=== PATIENT | male | born 1995 | race Caucasian/White ===

== ENCOUNTER 2017-10-23 05:10 | Emergency (ER) | payer BC ==
[2017-10-23] MEDS ORDERED: NA CHLORIDE 0.9% 1,000 ML ONE (05:30)
[2017-10-23] MEDS ORDERED: Morphine 2 MG/2 ML SYR ONE (05:45)
[2017-10-23] MEDS ORDERED: ONDANSETRON 4 MG/2 ML VIAL ONE (05:46)
--- NOTE | 2017-10-23 05:48 | EDPHYS ---
Physician Documentation [facility] Name: Rory Rivera Age: 22 yrs Sex: Male : 1995 Arrival Date: 10/23/2017 Time: 05:11 Bed 16 Private MD: ED Physician Torsten Chou HPI: 10/23 05:39 This 22 yrs old Male presents to ER via Wheelchair with complaints of tw4 Vomiting. 05:39 The patient presents to the emergency department with nausea, vomiting. Onset: The tw4 symptoms/episode began/occurred today. The symptoms are aggravated by nothing. The symptoms are alleviated by nothing. Severity of symptoms: At their worst the symptoms were moderate in the emergency department the symptoms are unchanged. The patient has not experienced similar symptoms in the past. Historical: - Allergies: 05:24 No Known Allergies; aa1 - Home Meds: 05:24 [place] Oral [Active]; aa1 - PMHx: 05:24 None; aa1 - PSHx: 05:24 Tonsillectomy; aa1 - Immunization history:: Flu vaccine is not up to date. - Social history:: Smoking status: Patient/guardian denies using tobacco. - Ebola Screening: : No symptoms or risks identified at this time. ROS: 05:39 Constitutional: Negative for fever, chills, and weight loss, Cardiovascular: Negative tw4 for chest pain, palpitations, and edema, Respiratory: Negative for shortness of breath, cough, wheezing, and pleuritic chest pain, Back: Negative for injury and pain. 05:39 ENT: Positive for difficulty handling secretions, hoarseness, sore throat. 05:39 Abdomen/GI: Positive for nausea and vomiting, nausea, vomiting, and diarrhea, nausea, vomiting. 05:39 Back: Positive for Exam: 05:40 Constitutional: This is a well developed, well nourished patient who is awake, alert, tw4 and in no acute distress. Chest/axilla: Normal chest wall appearance and motion. Nontender with no deformity. No lesions are appreciated. Cardiovascular: Regular rate and rhythm with a normal S1 and S2. No gallops, murmurs, or rubs. Normal PMI, no JVD. No pulse deficits. Respiratory: Lungs have equal breath sounds bilaterally, clear to auscultation and percussion. No rales, rhonchi or wheezes noted. No increased work of breathing, no retractions or nasal flaring. Abdomen/GI: Soft, non-tender, with normal bowel sounds. No distension or tympany. No guarding or rebound. No evidence of tenderness throughout. MS/ Extremity: Pulses equal, no cyanosis. Neurovascular intact. Full, normal range of motion. Neuro: Awake and alert, GCS 15, oriented to person, place, time, and situation. Cranial nerves II-XII grossly intact. Motor strength 5/5 in all extremities. Sensory grossly intact. Cerebellar exam normal. Normal gait. Vital Signs: 05:24 BP 138 / 92; Pulse 104; Resp 20; Temp 97.5; Pulse Ox 95% on R/A; Weight 81.65 kg; aa1 Height 6 ft. 0 in. (182.88 cm); Pain 8/10; 06:00 BP 145 / 99 LA Sitting (auto/reg); Pulse 102 LA; Resp 14; Temp 98.3(A); Pulse Ox 99% on bs1 R/A; Pain 7/10; 06:30 BP 137 / 92; Pulse 120; Resp 14 S; Pulse Ox 96% on R/A; bs1 06:50 Pulse 117; bs1 05:24 Body Mass Index 24.41 (81.65 kg, 182.88 cm) aa1 MDM: 05:30 Patient medically screened. tw4 05:45 Differential diagnosis: Nonspecific abd pain, gastritis. Data reviewed: vital signs, tw4 nurses notes. Data interpreted: superintendent tests: rhythm is sinus tachycardia, Pulse oximetry: Interpretation: normal. Counseling: I had a detailed discussion with the patient and/or guardian regarding: the historical points, exam findings, and any diagnostic results supporting the discharge/admit diagnosis. Other consultation: Facility A, was alerted at 05:30, D/W Dr Granda ENT will accept to [facility]. 10/23 05:26 Order name: Basic Metabolic Panel 10/23 05:26 Order name: BNP 10/23 05:26 Order name: CBC with Diff 10/23 05:26 Order name: Ckmb 10/23 05:26 Order name: CPK 10/23 05:26 Order name: LFT's 10/23 05:26 Order name: Magnesium 10/23 05:26 Order name: PT-INR 10/23 05:26 Order name: Ptt, Activated 10/23 05:26 Order name: Troponin (emerg Dept Use Only) 10/23 05:38 Order name: Type And Screen 10/23 05:26 Order name: EKG; Complete Time: 05:27 10/23 05:26 Order name: Cardiac monitoring; Complete Time: 05:34 10/23 05:26 Order name: EKG - Nurse/Tech; Complete Time: 05:50 10/23 05:26 Order name: IV Saline Lock; Complete Time: 05:27 10/23 05:26 Order name: Labs collected and sent; Complete Time: 05:27 10/23 05:26 Order name: O2 Per Protocol; Complete Time: 05:28 10/23 05:26 Order name: O2 Sat Monitoring; Complete Time: 05:28 Administered Medications: 05:29 Drug: NS 0.9% 1000 ml Route: IV; Rate: 1 bolus; Site: right antecubital; bs1 06:52 Follow up: IV Status: Completed infusion bs1 05:50 Drug: Zofran 4 mg Route: IVP; Site: left forearm; bs1 06:13 Follow up: Response: No adverse reaction bs1 05:50 Drug: morphine 1 mg Route: IVP; Site: left forearm; bs1 06:13 Follow up: Response: No adverse reaction bs1 Disposition: 10/23/17 05:48 Transfer ordered to Other Acute Care Facility. Diagnosis is Post-surgical bleeding from tonsils. - Reason for transfer: Higher level of care. - Accepting physician is Dr Granda. - Condition is Fair. - Problem is an ongoing problem. - Symptoms have worsened. Signatures: Dispatcher [employer] EDMS Xuan Jamil RN RN aa1 Anastasiya Valentin RN RN bs1 Torsten Chou MD MD tw4 Corrections: (The following items were deleted from the chart) 06:55 05:48 10/23/2017 05:48 Transfer ordered to Other Acute Care Facility. Diagnosis is bs1 Post-surgical bleeding from tonsils. Reason for transfer: Higher level of care. Accepting physician is Dr Granda. Condition is Fair. Problem is an ongoing problem. Symptoms have worsened. tw4
--- NOTE | 2017-10-23 05:48 | ER ---
Nurse's Notes [facility] Name: Rory Rivera Age: 22 yrs Sex: Male : 1995 Arrival Date: 10/23/2017 Time: 05:11 Bed 16 Private MD: Diagnosis: Post-surgical bleeding from tonsils Presentation: 10/23 05:20 Presenting complaint: Patient states: he had his tonsils removed a few days ago and aa1 began vomiting large amounts of blood at 0245 this am. Reports he contacted ENT and was told bleeding was normal and to gargle with ice water but states it has not helped. Pt appears pale \T\ diaphoretic. Transition of care: patient was not received from another setting of care. Onset of symptoms was October 23, 2017 at 02:45. Risk Assessment: Do you want to hurt yourself or someone else? Patient reports no desire to harm self or others. Initial Sepsis Screen: Does the patient meet any 2 criteria? HR > 90 bpm. Does the patient have a suspected source of infection? Yes: Skin breakdown/wound. Care prior to arrival: None. 05:20 Method Of Arrival: Wheelchair aa1 05:20 Acuity: GUDELIA 2 aa1 Historical: - Allergies: 05:24 No Known Allergies; aa1 - Home Meds: 05:24 [place] Oral [Active]; aa1 - PMHx: 05:24 None; aa1 - PSHx: 05:24 Tonsillectomy; aa1 - Immunization history:: Flu vaccine is not up to date. - Social history:: Smoking status: Patient/guardian denies using tobacco. - Ebola Screening: : No symptoms or risks identified at this time. Screenin:55 Abuse screen: Denies threats or abuse. Denies injuries from another. Nutritional bs1 screening: No deficits noted. Tuberculosis screening: No symptoms or risk factors identified. Fall Risk None identified. Assessment: 05:25 General: Appears uncomfortable, ill, slender, Behavior is cooperative. Pain: Complains bs1 of pain in throat. Neuro: Level of Consciousness is awake, alert, obeys commands, Oriented to person, place, time, situation, Appropriate for age Reports dizziness, weakness. Cardiovascular: Reports fatigue, nausea, Denies chest pain, shortness of breath, Heart tones S1 S2 present Capillary refill < 3 seconds Patient's skin is warm and dry. Respiratory: Airway is patent Trachea midline Respiratory effort is shallow, Respiratory pattern is regular, Breath sounds are clear bilaterally. GI: Abdomen is flat, non-distended, Bowel sounds present X 4 quads. Reports nausea, vomiting, vomiting large amounts of blood. : No signs and/or symptoms were reported regarding the genitourinary system. EENT: Throat is reddened vomiting large amounts of blood . Derm: Skin is intact, Skin is pale. Musculoskeletal: Circulation, motion, and sensation intact. Capillary refill < 3 seconds, Range of motion: intact in all extremities. 06:15 Reassessment: Report called to [facility], ER report given to BRYCE Siddiqi. Patient bs1 going to room 4. 06:20 Reassessment: No changes from previously documented assessment. Patient and/or family bs1 updated on plan of care and expected duration. Pain level reassessed. Patient is alert, oriented x 3, equal unlabored respirations, skin warm/dry/pink. Waiting for ambulance to transfer to [facility]. Vital Signs: 05:24 BP 138 / 92; Pulse 104; Resp 20; Temp 97.5; Pulse Ox 95% on R/A; Weight 81.65 kg; aa1 Height 6 ft. 0 in. (182.88 cm); Pain 8/10; 06:00 BP 145 / 99 LA Sitting (auto/reg); Pulse 102 LA; Resp 14; Temp 98.3(A); Pulse Ox 99% on bs1 R/A; Pain 7/10; 06:30 BP 137 / 92; Pulse 120; Resp 14 S; Pulse Ox 96% on R/A; bs1 06:50 Pulse 117; bs1 05:24 Body Mass Index 24.41 (81.65 kg, 182.88 cm) aa1 ED Course: 05:11 Patient arrived in ED. aa1 05:12 Anastasiya Valentin RN is Primary Nurse. bs1 05:20 Inserted saline lock: 18 gauge in right antecubital area, using aseptic technique. bs1 05:23 Triage completed. aa1 05:24 Arm band placed on right wrist. Patient placed in an exam room, on a stretcher. aa1 05:25 Torsten Chou MD is Attending Physician. tw4 05:25 Inserted saline lock: 18 gauge in left forearm, using aseptic technique. bs1 05:55 Patient has correct armband on for positive identification. Placed in gown. Bed in low bs1 position. Call light in reach. Side rails up X 1. Adult w/ patient. desk monitor on. Pulse ox on. NIBP on. Warm blanket given. 06:51 No provider procedures requiring assistance completed. Patient transferred, IV remains bs1 in place. intact. Administered Medications: 05:29 Drug: NS 0.9% 1000 ml Route: IV; Rate: 1 bolus; Site: right antecubital; bs1 06:52 Follow up: IV Status: Completed infusion bs1 05:50 Drug: Zofran 4 mg Route: IVP; Site: left forearm; bs1 06:13 Follow up: Response: No adverse reaction bs1 05:50 Drug: morphine 1 mg Route: IVP; Site: left forearm; bs1 06:13 Follow up: Response: No adverse reaction bs1 Outcome: 05:48 ER care complete, transfer ordered by . tw4 06:51 Transferred by ground EMS to [facility], Transfer form completed. Note: bs1 Report given to [facility] 06:51 Condition: stable 06:51 Instructed on the need for transfer, Demonstrated understanding of instructions, follow-up care. 06:55 Patient left the ED. bs1 Signatures: Xuan Jamil, RN RN aa1 Anastasiya Valentin RN RN bs1 Torsten Chou MD MD tw4 Corrections: (The following items were deleted from the chart) 06:28 05:25 Derm: Skin is intact, Skin is pink, warm \T\ dry. bs1 bs1
[2017-10-23 05:49] LABS: Absolute Lymphocytes (CBC) 3.1 K/uL (0.7-4.9); Absolute Monocytes 1.9 K/uL (0.1-1.3); Absolute Neutrophil 8.3 K/uL (1.8-8.0); Basophils % 0.2 % (0-1.3); Eosinophils % 0.8 % (0-4.4); Hematocrit 41.4 % (39.6-49.0); Lymphocytes % 23.1 % (15.3-44.8); MCH 30.1 pg (27.0-35.0); MCV 86.1 fL (80-100); MPV 8.2 fL (7.6-11.3); Monocytes % 14.1 % (3.3-12.3); RBC Red Blood Cell Count 4.81 M/uL (4.33-5.43)
[2017-10-23 05:54] LABS: Protime INR 1.39
[2017-10-23 06:02] LABS: Bicarbonate 25 mEq/L (21-31); Glucose Level 179 mg/dL (65-120); Potassium 3.6 mEq/L (3.6-5.0); Sodium Level 134 mEq/L (135-145)
[2017-10-23 06:08] LABS: ALT/SGPT 26 IU/L (10-60); AST/SGOT 22 IU/L (10-42); Alkaline Phosphatase 50 IU/L (42-121); BUN Blood Urea Nitrogen 21 mg/dL (6-20); Bilirubin Direct 0.1 mg/dL (0-0.2); Bilirubin Total 0.7 mg/dL (0.3-1.2); Creatine Phosphokinase 31 IU/L (22-269); Magnesium 1.8 mg/dL (1.8-2.5)
[2017-10-23 06:11] LABS: CKMB Creatine Kinase MB 0.6 ng/ml (0.3-4.0)
[2017-10-23 07:00] VITALS: TEMP 98.3
[2017-10-23 07:01] VITALS: BP 137/92; O2SAT 96
--- NOTE | 2017-10-23 10:39 | EKG ---
Test Date: 2017-10-23 Test Time: 05:51:45 Director Behavioral Health: JOSE MEASUREMENT RESULTS: Intervals: Rate: 96 MI: 144 QRSD: 88 QT: 358 QTc: 452 [place]: P: 83 MI: 144 QRS: 33 T: 59 INTERPRETIVE STATEMENTS: Normal sinus rhythm Nonspecific T wave abnormality Abnormal ECG No previous ECG available for comparison Electronically Signed On 10-23-17 10:38:32 CDT by Jose Guerrero
== END 2017-10-23 06:55 ==
LOC: ER 05:10
DX: K91.840 Postprocedural hemorrhage of a digestive system organ or structure following a digestive system procedure (principal)
CPT/HCPCS: 36415; 80048; 80076; 82550; 82553; 83735; 83880; 84484; 85025; 85610; 85730; 86850; 86900; 86901; 93005; 96361; 96374; 96375; 99285; J2270; J2405; J7030